=== PATIENT | female | born 1995 | race Two or more races ===

== ENCOUNTER 2020-03-04 22:21 | Inpatient (IN) | payer MEDICAID ==
[~2020-03-04] VITALS: Ht 160 cm; Wt 67.0 kg
[2020-03-04] MEDS ORDERED: DEXT 5%/LR + PITOCIN 20UNITS/L 1,000 ML IV SCH (23:55)
[2020-03-04] MEDS ORDERED: LACTATED RINGERS 1,000 ML IV SCH (23:55)
[2020-03-05] MEDS ORDERED: DEXT 5%/LR + PITOCIN 20UNITS/L 1,000 ML IV SCH (00:04)
[2020-03-05] MEDS ORDERED: LANOLIN OINT 7GM TUBE TOP PRN (00:15)
[2020-03-05] MEDS ORDERED: RHO(D) IMMUNE GLOBULIN 300 MCG/SYR IM PRN (00:15)
[2020-03-05] MEDS ORDERED: OXYCODONE HCL/ACETAMINOPHEN 5/325MG TABLET PO PRN (00:15)
[2020-03-05] MEDS ORDERED: HEMORRHOIDAL SUPP PR PRN (00:15)
[2020-03-05] MEDS ORDERED: DIPHENHYDRAMINE 25MG CAPSULE PO PRN (00:15)
[2020-03-05] MEDS ORDERED: GLYCERIN/WITCH HAZEL LEAF MEDICATED PAD TOP PRN (00:15)
[2020-03-05] MEDS ORDERED: IBUPROFEN 400MG TABLET PO PRN (00:15)
[2020-03-05 01:20] VITALS: BP 121/71
[2020-03-05 01:21] LABS: BASOPHILS % 0.3 % (0.0-2.0); EOSINOPHILS % 0.2 % (0.0-5.0); HEMOGLOBIN. 11.8 g/dL (12.0-16.0); LYMPHOCYTES % 8.8 % (20.0-50.0); MEAN CORPUSCULAR HEMOGLOBIN 30.6 pg (28.0-32.0); MEAN CORPUSCULAR VOLUME 90.3 fL (81.0-99.0); MEAN PLATELET VOLUME 9.3 fl (7.4-10.4); NEUTROPHILS % 85.7 % (40.0-76.0); PLATELET 301 x1000/uL (130-400); RED BLOOD CELL COUNT 3.87 mill/uL (4.2-5.4); RED CELL DISTRIBUTION WIDTH 13.7 % (11.6-14.6)
[2020-03-05 01:30] LABS: INR 0.9; PARTIAL THROMBOPLASTIN TIME 27.1 sec (23.4-31.0); PROTHROMBIN TIME 9.7 sec (9.6-11.0)
[2020-03-05 01:31] LABS: CHLORIDE 104 mEq/L (98-107)
[2020-03-05 01:58] LABS: HEPATITIS B SURFACE ANTIGEN NEGATIVE
[2020-03-05 03:59] LABS: CLARITY URINE CLOUDY (CLEAR); COLOR URINE RED (YELLOW); KETONES URINE NEGATIVE (NEGATIVE); LEUKOCYTE ESTERASE URINE 3+ (NEGATIVE); NITRITE URINE POSITIVE (NEGATIVE); OCCULT BLOOD URINE 3+ (NEGATIVE); PROTEIN URINE 3+ (NEGATIVE); SPECIFIC GRAVITY URINE 1.008 (1.005-1.030); UROBILINOGEN URINE 0.2 E.U./dL (0.2-1.0)
[2020-03-05 04:00] VITALS: BP 138/78
[2020-03-05 05:27] LABS: *BARBITURATES SCREEN URINE NEGATIVE (NEGATIVE)
[2020-03-05 05:28] LABS: *BENZODIAZEPINES SCREEN URINE NEGATIVE (NEGATIVE); *COCAINE SCREEN URINE NEGATIVE (NEGATIVE); METHADONE URINE SCREEN NEGATIVE (NEGATIVE); OPIATES URINE SCREEN NEGATIVE (NEGATIVE); PHENCYCLIDINE URINE SCREEN NEGATIVE (NEGATIVE)
[2020-03-05 05:47] LABS: *AMPHETAMINES SCREEN URINE PRESUMTIVE POSITIVE (NEGATIVE); CANNABINOID URINE SCREEN PRESUMTIVE POSITIVE (NEGATIVE)
[2020-03-05 08:00] VITALS: BP 126/79
[2020-03-05] MEDS: PRENATAL VIT/FE FUMARATE/FA TABLET PO SCH (08:03)
[2020-03-05] MEDS: NITROFURANTOIN 100MG M/M CAPSULE PO SCH ×2 (08:03→20:48)
[2020-03-05] MEDS: IBUPROFEN 800MG TABLET PO PRN (08:04)
[2020-03-05 15:00] VITALS: BP 121/84
[2020-03-05] MEDS: PENICILLIN G BENZATHINE 2,400,000 UNITS/4ML SYR IM NR ×2 (17:30→23:40)
[2020-03-05 21:00] VITALS: BP 126/85
[2020-03-05] MEDS ORDERED: DOCUSATE SODIUM 100MG CAPSULE PO SCH (21:00)
[2020-03-06] MEDS: IBUPROFEN 800MG TABLET PO PRN (03:53)
[2020-03-06 04:00] VITALS: BP 131/77
[2020-03-06 07:07] LABS: BASOPHILS % 0.1 % (0.0-2.0); EOSINOPHILS % 1.3 % (0.0-5.0); HEMATOCRIT. 32.5 % (36.0-48.0); LYMPHOCYTES % 20.6 % (20.0-50.0); MEAN CORPUSCULAR HEMOGLOBIN 30.5 pg (28.0-32.0); MEAN CORPUSCULAR VOLUME 90.3 fL (81.0-99.0); MEAN PLATELET VOLUME 8.7 fl (7.4-10.4); MONOCYTES % 4.8 % (2.0-8.0); NEUTROPHILS % 73.2 % (40.0-76.0); PLATELET 295 x1000/uL (130-400); RED CELL DISTRIBUTION WIDTH 13.6 % (11.6-14.6)
[2020-03-06] MEDS ORDERED: FERROUS SULFATE 325MG TABLET PO SCH (07:30)
[2020-03-06 09:00] VITALS: BP 130/86
[2020-03-06] MEDS: NITROFURANTOIN 100MG M/M CAPSULE PO SCH (09:04)
[2020-03-06] MEDS: PRENATAL VIT/FE FUMARATE/FA TABLET PO SCH (09:04)
[2020-03-06 16:00] VITALS: BP 128/87
[2020-03-11 09:09] LABS: AMPHETAMINE CONF URINE Positive (.); CANNABINOID CONFIRMATION URINE Comment: (.)
== END 2020-03-06 16:53 | disposition home or self-care (01) | DRG 560 ==
LOC: ER 22:21 → INTOOBSV 23:38 → UNDOADMOB 23:38 → 8 EST LDRP 23:38 → 8EST 23:38 → OBSVTOIN 23:38 → 8 EST LDRP 03-05 01:20 → 8EST 03-05 01:20 → UNDODISIN 03-06 16:53
PROVIDERS: ADMIT Specialist; ATTEND Specialist
PROC: 10E0XZZ Delivery of Products of Conception, External Approach (ICD-10-PCS; principal; 2020-03-05)
DX: O99.324 Drug use complicating childbirth (principal); F10.10 Alcohol abuse, uncomplicated; O99.314 Alcohol use complicating childbirth; F12.10 Cannabis abuse, uncomplicated; O99.334 Smoking (tobacco) complicating childbirth; Z37.0 Single live birth; Z3A.36 36 weeks gestation of pregnancy
CPT/HCPCS: 36415; 80053; 80305; 80307; 80349; 81003; 85025; 86592; 86593; 86703; 86762; 86780; 86850; 86900; 87340; 96365; 99281; 99285; G0378; J0561